=== PATIENT | female | born 1955 | race Two or more races ===

== ENCOUNTER 2017-04-10 08:02 | Outpatient (CLI) | payer OTHER ==
[~2017-04-10 08:02] MED LIST: EMEND125 MG; SENOKOT TAB1 TAB
== END 2017-04-10 11:20 | disposition home or self-care (01) ==
LOC: TOM 08:02
DX: C56.9 Malignant neoplasm of unspecified ovary (principal); J32.0 Chronic maxillary sinusitis; R63.0 Anorexia; C77.2 Secondary and unspecified malignant neoplasm of intra-abdominal lymph nodes; C77.5 Secondary and unspecified malignant neoplasm of intrapelvic lymph nodes